=== PATIENT | female | born 1990 | race Caucasian/White ===

== ENCOUNTER 2023-12-23 08:29 | Outpatient (CLI) | payer OTHER, SELFPAY | END 2023-12-23 08:30 | disposition home or self-care (01) | LOC: NFLDREF 12-27 01:26 | PROVIDERS: PCP Family Medicine; Visit Provider Family Medicine | DX: Z71.84 Encounter for health counseling related to travel (principal); Z11.59 Encounter for screening for other viral diseases; Z13.228 Encounter for screening for other metabolic disorders; Z13.220 Encounter for screening for lipoid disorders; Z11.3 Encounter for screening for infections with a predominantly sexual mode of transmission | CPT/HCPCS: 80053; 80061; 86592; 86703; 86803 ==

== ENCOUNTER 2024-08-06 09:21 | Outpatient (CLI) | payer OTHER, SELFPAY ==
[2024-08-06 15:48] LABS: Chlamydia DNA Amplified* NOT DETECTED (No Detected); GC DNA Amplified* NOT DETECTED (No Detected)
[2024-08-08 12:08] LABS: HPV Source Cervix; HPV, High Risk by TMA Detected
[2024-08-09 00:20] LABS: HPV Genotype 16 by TMA Not Detected; HPV Genotype 18/45 by TMA Not Detected; HPVG Source Cervix
== END 2024-08-06 09:22 | disposition home or self-care (01) ==
PROVIDERS: PCP Family Medicine; Visit Provider Registered Nurse
DX: Z12.4 Encounter for screening for malignant neoplasm of cervix (principal); Z11.3 Encounter for screening for infections with a predominantly sexual mode of transmission
CPT/HCPCS: 87491; 87591; 87624; 87625; 88141; 88142

== ENCOUNTER 2024-08-14 08:13 | Outpatient (CLI) | payer OTHER, SELFPAY ==
--- NOTE | 2024-08-14 08:45 | CRLHL7_ITS ---
For Patients: As a result of the Cures Act, medical imaging exams and procedure reports are released immediately into your electronic medical record. You may view this report before your referring provider. If you have questions, please contact your health care provider. RIGHT BREAST DIAGNOSTIC MAMMOGRAM WITH COMPUTER-AIDED DETECTION AND TOMOSYNTHESIS 08/14/2024 CLINICAL HISTORY: RIGHT breast lump. COMPARISON: None. TECHNIQUE: Digital RIGHT mammogram in 3 projections with computer-aided detection. Tomosynthesis was used in this interpretation. Real-time ultrasound imaging of RIGHT breast with imaging documentation. BREAST COMPOSITION: The breasts are heterogeneously dense, which may obscure small masses. FINDINGS: 3D CC/MLO/XCCL RIGHT breast mammogram images submitted. No suspicious mass or architectural distortion. No suspicious calcifications or adenopathy. Targeted RIGHT breast ultrasound performed at 11 o`clock 7 cm from the nipple. Normal dense fibroglandular tissue is present. No fibrocystic change or mass. IMPRESSION: No evidence of malignancy. RECOMMENDATIONS: Age-appropriate screening mammography. A lay language report of this examination will be provided to the patient. BI-RADS Category 2. Benign Dictated by Gideon Starr MD @ 08/14/2024 12:33:23 PM DEJUAN/gladys DW/Dictated by: Gideon Starr MD @ 08/14/2024 12:33:00 PM (Electronically Signed)
--- NOTE | 2024-08-14 09:15 | CRLHL7_ITS ---
For Patients: As a result of the Century Cures Act, medical imaging exams and procedure reports are released immediately into your electronic medical record. You may view this report before your referring provider. If you have questions, please contact your health care provider. PLEASE SEE RIGHT BREAST DIAGNOSTIC MAMMOGRAM PERFORMED SAME DAY. CRL:sp SP/Dictated by: Gideon Starr MD @ 08/14/2024 12:33:00 PM (Electronically Signed)
== END 2024-08-14 08:14 | disposition home or self-care (01) ==
LOC: MAMMO 08:13
PROVIDERS: PCP Family Medicine; Visit Provider Registered Nurse
DX: N63.10 Unspecified lump in the right breast, unspecified quadrant (principal)
CPT/HCPCS: 76642; 77065; G0279